=== PATIENT | male | born 2000 | race Caucasian/White ===

== ENCOUNTER 2018-02-05 09:37 | Emergency (ER) | payer OTHER ==
[~2018-02-05] VITALS: Ht 185.4 cm; Wt 82.0 kg
[2018-02-05] MEDS ORDERED: FLUT9.9S NAS (09:50)
[2018-02-05] MEDS ORDERED: ONDANSETRON ODT 4 MG ONE (09:56)
[2018-02-05] MEDS ORDERED: KETOROLAC 30 MG/1 ML ONE (09:56)
[2018-02-05] MEDS ORDERED: ONDANSETRON ODT 4 MG PO ONE (10:00)
[2018-02-05] MEDS ORDERED: KETOROLAC 30 MG/1 ML IM ONE (10:00)
[2018-02-05 10:27] LABS: RAPID INFLUENZA A Negative (Negative); RAPID INFLUENZA B Negative (Negative)
[2018-02-05] MEDS ORDERED: ALBUTEROL/IPRATROPIUM 2.5MG/0.5MG, 3 ML ONE (10:42)
[2018-02-05 11:00] VITALS: BP 107/45
[2018-02-05] MEDS ORDERED: ALBUTEROL/IPRATROPIUM 2.5MG/0.5MG, 3 ML NPPB ONE (11:00)
== END 2018-02-05 11:17 | disposition home or self-care (01) ==
LOC: ED 11:11
DX: R50.9 Fever, unspecified (principal); M79.10 Myalgia, unspecified site
CPT/HCPCS: 71046; 87400; 94640; 96372; 99284; J1885; J7620; Q0162

== ENCOUNTER 2019-11-07 10:17 | Emergency (ER) | payer OTHER ==
[~2019-11-07] VITALS: Ht 185.4 cm; Wt 77.8 kg
[~2019-11-07 10:17] MED LIST: FLUT9.9S NAS
[2019-11-07 10:19] VITALS: BP 120/61
--- NOTE | 2019-11-07 10:38 | NUR ---
PT CAME POV. PT C/O CAT BITE AND SCRATCH TO RIGHT LOWER EXT THAT HAPPENED ONE WEEK AGO. PT STATES AREA ONLY HURTS IF TOUCHED. NO NUMBNESS OR TINGLING TO EXT. WOUND IS RED AND WARM TO TOUCH, BUT NO DISCHARGE NOTED.
[2019-11-07] MEDS ORDERED: RABIES IMMUNE GLOBULIN/PF 150 UNITS/ML, 2ML IM ONE ×2 (11:15→11:30)
[2019-11-07] MEDS ORDERED: RABIES VACCINE /PF 2.5 UNITS IM-VACC ONE (11:15)
--- NOTE | 2019-11-07 11:43 | NUR ---
10 ML OF RABIES IMMUNE GLOBULIN/1500 UNITS GIVEN IN 5 IM INJECTIONS AROUND WOUNDS BACK OF RIGHT CALF. 5 VIALS USED AND ALL FROM LOT NUMBER [id number], EXP DEC 15. PT TOELRATED WELL.
--- NOTE | 2019-11-07 12:41 | NUR ---
Break RN- discharge instructions reviewed.
== END 2019-11-07 12:43 | disposition home or self-care (01) ==
LOC: ED 10:43
DX: S80.871A Other superficial bite, right lower leg, initial encounter (principal); W55.01XA Bitten by cat, initial encounter; Y93.89 Activity, other specified; Y92.098 Other place in other non-institutional residence as the place of occurrence of the external cause; Y99.8 Other external cause status
CPT/HCPCS: 90375; 90471; 90675; 96372; 99284

== ENCOUNTER 2019-11-10 11:40 | Emergency (ER) | payer OTHER ==
[~2019-11-10] VITALS: Ht 185.4 cm; Wt 78.9 kg
[2019-11-10] MEDS ORDERED: RABIES IMMUNE GLOBULIN/PF 150 UNITS/ML, 2ML IM ONE (13:00)
[2019-11-10 13:30] VITALS: BP 119/74
== END 2019-11-10 13:54 | disposition home or self-care (01) ==
LOC: ED 12:47
DX: S81.851D Open bite, right lower leg, subsequent encounter (principal); Z20.3 Contact with and (suspected) exposure to rabies; W55.01XD Bitten by cat, subsequent encounter
CPT/HCPCS: 90375; 96372; 99281

== ENCOUNTER 2019-11-14 08:39 | Emergency (ER) | payer OTHER ==
[~2019-11-14] VITALS: Ht 185.4 cm; Wt 77.4 kg
[2019-11-14 08:42] VITALS: BP 124/54
[2019-11-14] MEDS ORDERED: RABIES VACCINE /PF 2.5 UNITS IM-VACC ONE (09:00)
--- NOTE | 2019-11-14 10:02 | NUR ---
PT SITTING ON GURNEY ON CELL PHONE, NAD, VSS. NO ADDITIONAL NEEDS AT THIS TIME. CALL LIGHT WITHIN REACH.
== END 2019-11-14 10:24 | disposition home or self-care (01) ==
LOC: ED 09:31
DX: S81.851D Open bite, right lower leg, subsequent encounter (principal); Z20.3 Contact with and (suspected) exposure to rabies; W55.01XD Bitten by cat, subsequent encounter
CPT/HCPCS: 90471; 90675; 99281

== ENCOUNTER 2019-11-21 09:32 | Emergency (ER) | payer OTHER ==
[~2019-11-21] VITALS: Ht 185.4 cm; Wt 75.6 kg
[2019-11-21 09:35] VITALS: BP 102/52
[2019-11-21] MEDS ORDERED: RABIES VACCINE /PF 2.5 UNITS IM-VACC ONE (10:00)
== END 2019-11-21 10:09 | disposition home or self-care (01) ==
LOC: ED 10:05
DX: S81.851D Open bite, right lower leg, subsequent encounter (principal); Z20.3 Contact with and (suspected) exposure to rabies; X58.XXXD Exposure to other specified factors, subsequent encounter
CPT/HCPCS: 90471; 90675; 99281